=== PATIENT | male | born 1990 ===

== ENCOUNTER 2021-03-28 15:51 | Emergency (ER) | payer OTHER ==
[~2021-03-28] VITALS: Ht 172.7 cm; Wt 77.1 kg
[~2021-03-28 15:51] MED LIST: Cipro500 MG PO; Flagyl500 MG PO
[2021-03-28 16:49] LABS: BASOPHILS ABSOLUTE AUTO 0.08 K/mm3 (0.00-0.23); BASOPHILS PERCENT AUTO 1 % (0-2); EOSINOPHILS ABSOLUTE AUTO 0.18 K/mm3 (0.00-0.68); EOSINOPHILS PERCENT AUTO 3 % (0-6); Hematocrit 46.1 % (37.0-53.0); Hemoglobin 15.3 g/dL (13.5-17.5); IMMATURE GRAN ABSOLUTE AUTO 0.02 K/mm3 (0.00-0.10); IMMATURE GRAN PERCENT AUTO 0 % (0-1); LYMPHOCYTES ABSOLUTE AUTO 1.93 K/mm3 (0.84-5.20); LYMPHOCYTES PERCENT AUTO 28 % (21-46); MONOCYTES ABSOLUTE AUTO 0.63 K/mm3 (0.16-1.47); MONOCYTES PERCENT AUTO 9 % (4-13); Mean Corpuscular HGB Conc 33.2 g/dL (31.5-36.5); Mean Corpuscular Volume 88 fL (80-100); Mean Platelet Volume 10.3 fL (9.1-12.4); NEUTROPHILS ABSOLUTE AUTO 4.14 K/mm3 (1.96-9.15); NEUTROPHILS PERCENT AUTO 59 % (41-73); Platelet Count 211 K/mm3 (150-400); RDW Coefficient Variation 12.4 % (11.7-14.2); RDW Standard Deviation 40.2 fL (35.1-46.3); Red Blood Cell Count 5.27 M/mm3 (4.30-5.90); White Blood Cell Count 6.98 K/mm3 (4.00-11.30)
[2021-03-28 17:06] LABS: Alanine Aminotransfer (ALT/SGP 29 U/L (12-78); Albumin, Blood 3.9 g/dL (3.4-5.0); Albumin/Globulin Ratio 0.9 (0.8-1.8); Alk Phos 72 U/L (50-136); Anion Gap 4 mmol/L (6-16); Aspartate Aminotrans (AST/SGOT 17 U/L (12-37); Bilirubin, Total 0.4 mg/dL (0.1-1.0); Blood Urea Nitrogen 10 mg/dL (8-24); Bun/Creatinine Ratio 13.2 (12.0-20.0); CO2, Blood 30 mmol/L (21-32); Calcium, Blood 9.4 mg/dL (8.5-10.1); Chloride, Blood 106 mmol/L (98-108); Creatinine, Blood 0.76 mg/dL (0.60-1.20); Globulin, Blood 4.3 g/dL (2.2-4.0); Glomerular Filtration Rate >60 (60-); Glucose, Blood 86 mg/dL (70-99); Potassium, Blood 4.1 mmol/L (3.5-5.5); Sodium, Blood 140 mmol/L (136-145); Total Protein, Blood 8.2 g/dL (6.4-8.2)
[2021-03-28 18:03] LABS: Source, Urine Catheter
[2021-03-28 18:07] LABS: Appearance, Urine Clear (Clear); Bilirubin, Urine Neg (Neg); Blood, Urine Neg (Neg); Color, Urine Yellow (P-Yellow); Glucose Qualitative, Urine Neg (Neg); Ketones, Urine Neg (Neg); Leukocyte Esterase, Urine 1+ (Neg); Nitrite, Urine Neg (Neg); Protein, Urine Neg (Neg); Specific Gravity, Urine 1.005 (1.003-1.022); Urobilinogen, Urine NORM (Normal)
[2021-03-28 18:15] LABS: Bacteria Mod /hpf; Red Blood Cells, Urine Not Seen /hpf (0-2); Squamous Epithelial Cells Few /hpf (Few); White Blood Cells, Urine 0-2 /hpf (0-5)
[2021-03-28] MEDS ORDERED: XARELTO20 MG PO (19:23)
[2021-03-28] MEDS ORDERED: MYRBETRIQ50 MG PO (19:23)
[2021-05-22] MEDS ORDERED: PROTONIX40 M4 PO (12:52)
== END 2021-03-28 22:08 | disposition home or self-care (01) ==
LOC: ER 15:51
PROVIDERS: Physician Assistant
DX: R50.9 Fever, unspecified (principal); R51.9 Headache, unspecified; Z79.01 Long term (current) use of anticoagulants
CPT/HCPCS: 36415; 71046; 80053; 81001; 85025; 87086; 87147; 99283-25

== ENCOUNTER → 2021-05-01 | Outpatient (CLI) | payer OTHER ==
[~2021-05-01] MED LIST changes: +MYRBETRIQ50 MG PO; +PROTONIX40 M4 PO; +XARELTO20 MG PO
[2021-05-01 19:07] LABS: Appearance, Urine Clear (Clear); Bilirubin, Urine Neg (Neg); Blood, Urine Neg (Neg); Color, Urine Yellow (P-Yellow); Glucose Qualitative, Urine Neg (Neg); Ketones, Urine Neg (Neg); Leukocyte Esterase, Urine 1+ (Neg); Nitrite, Urine Neg (Neg); Protein, Urine Neg (Neg); Specific Gravity, Urine 1.005 (1.003-1.022); Urobilinogen, Urine NORM (Normal)
[2021-05-01 19:22] LABS: Bacteria Few /hpf; Red Blood Cells, Urine Not Seen /hpf (0-2); Squamous Epithelial Cells Few /hpf (Few); White Blood Cells, Urine 0-2 /hpf (0-5)
== END | disposition home or self-care (01) ==
LOC: LAB SHORT 17:00 → LAB 17:00 → LAB FUT 04-24 16:30
PROVIDERS: Physician Assistant
DX: N31.2 Flaccid neuropathic bladder, not elsewhere classified (principal); N39.41 Urge incontinence
CPT/HCPCS: 81001; 87086; 87147

== ENCOUNTER 2021-05-23 07:16 | Day surgery (SDC) | payer OTHER | END 2021-05-23 09:34 | disposition home or self-care (01) | LOC: ORSCMMR 07:16 | PROC: 0DJD8ZZ Inspection of Lower Intestinal Tract, Via Natural or Artificial Opening Endoscopic (ICD-10-PCS; principal; 2021-05-23) | DX: R10.31 Right lower quadrant pain (principal); G82.50 Quadriplegia, unspecified; Z79.01 Long term (current) use of anticoagulants; Z79.899 Other long term (current) drug therapy ==

== ENCOUNTER 2022-06-18 12:58 | Inpatient (IN) | payer OTHER ==
[~2022-06-18] VITALS: Ht 172.7 cm; Wt 89.8 kg
[2022-06-18 13:44] LABS: BASOPHILS ABSOLUTE AUTO 0.06 K/mm3 (0.00-0.23); BASOPHILS PERCENT AUTO 0 % (0-2); EOSINOPHILS ABSOLUTE AUTO 0.03 K/mm3 (0.00-0.68); EOSINOPHILS PERCENT AUTO 0 % (0-6); Hematocrit 43.1 % (37.0-53.0); Hemoglobin 14.1 g/dL (13.5-17.5); IMMATURE GRAN ABSOLUTE AUTO 0.22 K/mm3 (0.00-0.10); IMMATURE GRAN PERCENT AUTO 1 % (0-1); LYMPHOCYTES ABSOLUTE AUTO 1.69 K/mm3 (0.84-5.20); LYMPHOCYTES PERCENT AUTO 8 % (21-46); MONOCYTES ABSOLUTE AUTO 1.73 K/mm3 (0.16-1.47); MONOCYTES PERCENT AUTO 8 % (4-13); Mean Corpuscular HGB 27.8 pg (26.0-34.0); Mean Corpuscular HGB Conc 32.7 g/dL (31.5-36.5); Mean Corpuscular Volume 85 fL (80-100); Mean Platelet Volume 10.4 fL (9.1-12.4); NEUTROPHILS ABSOLUTE AUTO 17.78 K/mm3 (1.96-9.15); NEUTROPHILS PERCENT AUTO 83 % (41-73); Platelet Count 220 K/mm3 (150-400); RDW Coefficient Variation 13.3 % (11.7-14.2); RDW Standard Deviation 41.1 fL (35.1-46.3); Red Blood Cell Count 5.07 M/mm3 (4.30-5.90); White Blood Cell Count 21.51 K/mm3 (4.00-11.30)
[2022-06-18 14:12] LABS: Albumin, Blood 3.8 g/dL (3.4-5.0); Bun/Creatinine Ratio 12.5 (12.0-20.0); Calcium, Blood 9.2 mg/dL (8.5-10.1); Creatinine, Blood 0.8 mg/dL (0.60-1.20); Potassium, Blood 4.2 mmol/L (3.5-5.5); Total Protein, Blood 7.8 g/dL (6.4-8.2)
[2022-06-18 14:19] LABS: Source, Urine Clean Catch
[2022-06-18 14:32] LABS: Appearance, Urine Cloudy (Clear); Blood, Urine 4+ (Neg); Color, Urine Yellow (P-Yellow); Glucose Qualitative, Urine Neg (Neg); Ketones, Urine Neg (Neg); Leukocyte Esterase, Urine 3+ (Neg); Nitrite, Urine Pos (Neg); Protein, Urine 2+ (Neg); Specific Gravity, Urine 1.015 (1.003-1.022); Urobilinogen, Urine NORM (Normal)
[2022-06-18 16:35] LABS: Bilirubin, Urine 1+ (Neg)
[2022-06-18 16:36] LABS: White Blood Cells, Urine 50-100 /hpf (0-5)
[2022-06-18 16:37] LABS: Bacteria Many /hpf; Squamous Epithelial Cells Few /hpf (Few); Transitional Epithelial Cells Few /hpf (0-Rare)
[2022-06-18 16:39] LABS: Mucus Light (0-Heavy)
[2022-06-19 04:45] LABS: BASOPHILS ABSOLUTE AUTO 0.07 K/mm3 (0.00-0.23); BASOPHILS PERCENT AUTO 0 % (0-2); EOSINOPHILS ABSOLUTE AUTO 0.16 K/mm3 (0.00-0.68); EOSINOPHILS PERCENT AUTO 1 % (0-6); Hematocrit 38.4 % (37.0-53.0); Hemoglobin 12.7 g/dL (13.5-17.5); IMMATURE GRAN ABSOLUTE AUTO 0.06 K/mm3 (0.00-0.10); IMMATURE GRAN PERCENT AUTO 0 % (0-1); LYMPHOCYTES ABSOLUTE AUTO 2.64 K/mm3 (0.84-5.20); LYMPHOCYTES PERCENT AUTO 15 % (21-46); MONOCYTES ABSOLUTE AUTO 1.08 K/mm3 (0.16-1.47); MONOCYTES PERCENT AUTO 6 % (4-13); Mean Corpuscular HGB 28.3 pg (26.0-34.0); Mean Corpuscular HGB Conc 33.1 g/dL (31.5-36.5); Mean Corpuscular Volume 86 fL (80-100); Mean Platelet Volume 10.8 fL (9.1-12.4); NEUTROPHILS ABSOLUTE AUTO 13.27 K/mm3 (1.96-9.15); NEUTROPHILS PERCENT AUTO 77 % (41-73); Platelet Count 183 K/mm3 (150-400); RDW Coefficient Variation 13.3 % (11.7-14.2); RDW Standard Deviation 41.4 fL (35.1-46.3); Red Blood Cell Count 4.48 M/mm3 (4.30-5.90); White Blood Cell Count 17.28 K/mm3 (4.00-11.30)
[2022-06-19 05:12] LABS: Albumin, Blood 3.2 g/dL (3.4-5.0); Albumin/Globulin Ratio 0.8 (0.8-1.8); Bun/Creatinine Ratio 11.7 (12.0-20.0); Calcium, Blood 8.4 mg/dL (8.5-10.1); Creatinine, Blood 0.6 mg/dL (0.60-1.20); Globulin, Blood 3.8 g/dL (2.2-4.0); Potassium, Blood 3.5 mmol/L (3.5-5.5)
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
--- NOTE | 2022-06-19 06:47 | NUR ---
06/19/22 0640 Patient with a temp of 100.4 this am. Pt states he is continuing to have the leg spasms and that they are lasting 2minutes. Pain and "pulling feeling in bladder and bowel is better. Tylenol 650 mg given.
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
--- NOTE | 2022-06-20 04:24 | NUR ---
SHIFT SUMMARY PATIENT A&OX4, PLEASANT AND COOPERATIVE. SMITH IN PLACE, DRAINING YELLOW/CLEAR. PATIENT HAD A FEVER, TREATED WITH TYLENOL AND HAS RESOLVED. NEW ORDER FOR BACLOFEN OBTAINED TO TREAT MUSCLE SPASMS. PT HAD NO PAIN OR NAUSEA DURING SHIFT. CALL LIGHT WITHIN REACH.
[2022-06-20 05:02] LABS: BASOPHILS ABSOLUTE AUTO 0.05 K/mm3 (0.00-0.23); BASOPHILS PERCENT AUTO 1 % (0-2); EOSINOPHILS ABSOLUTE AUTO 0.06 K/mm3 (0.00-0.68); EOSINOPHILS PERCENT AUTO 1 % (0-6); Hematocrit 40.7 % (37.0-53.0); Hemoglobin 13.5 g/dL (13.5-17.5); IMMATURE GRAN ABSOLUTE AUTO 0.03 K/mm3 (0.00-0.10); IMMATURE GRAN PERCENT AUTO 0 % (0-1); LYMPHOCYTES ABSOLUTE AUTO 2.11 K/mm3 (0.84-5.20); LYMPHOCYTES PERCENT AUTO 21 % (21-46); MONOCYTES ABSOLUTE AUTO 0.92 K/mm3 (0.16-1.47); MONOCYTES PERCENT AUTO 9 % (4-13); Mean Corpuscular HGB 28.2 pg (26.0-34.0); Mean Corpuscular HGB Conc 33.2 g/dL (31.5-36.5); Mean Corpuscular Volume 85 fL (80-100); Mean Platelet Volume 10.3 fL (9.1-12.4); NEUTROPHILS ABSOLUTE AUTO 6.75 K/mm3 (1.96-9.15); NEUTROPHILS PERCENT AUTO 68 % (41-73); Platelet Count 190 K/mm3 (150-400); RDW Coefficient Variation 13.3 % (11.7-14.2); RDW Standard Deviation 41.8 fL (35.1-46.3); Red Blood Cell Count 4.78 M/mm3 (4.30-5.90); White Blood Cell Count 9.92 K/mm3 (4.00-11.30)
[2022-06-20 05:19] LABS: Bun/Creatinine Ratio 6.5 (12.0-20.0); Calcium, Blood 8.5 mg/dL (8.5-10.1); Creatinine, Blood 0.78 mg/dL (0.60-1.20); Potassium, Blood 3.4 mmol/L (3.5-5.5)
--- NOTE | 2022-06-20 17:26 | NUR ---
SHIFT SUMMARY PT A/O X4; PLEASANT AND COOPERATIVE WITH CARE. PT PERIODICALLY EXPERIENCES INTENSE MUSCLE SPASMS, TREATED PER EMR. SMITH IN PLACE AND DRAINING TO GRAVITY. IND/SBA TO WHEEL CHAIR. VSS. WILL REPORT TO PRABHAKAR WHITTAKER.
[2022-06-21 04:54] LABS: BASOPHILS ABSOLUTE AUTO 0.06 K/mm3 (0.00-0.23); BASOPHILS PERCENT AUTO 1 % (0-2); EOSINOPHILS ABSOLUTE AUTO 0.12 K/mm3 (0.00-0.68); EOSINOPHILS PERCENT AUTO 2 % (0-6); Hematocrit 41.9 % (37.0-53.0); Hemoglobin 13.8 g/dL (13.5-17.5); IMMATURE GRAN ABSOLUTE AUTO 0.02 K/mm3 (0.00-0.10); IMMATURE GRAN PERCENT AUTO 0 % (0-1); LYMPHOCYTES PERCENT AUTO 19 % (21-46); MONOCYTES ABSOLUTE AUTO 1.11 K/mm3 (0.16-1.47); MONOCYTES PERCENT AUTO 14 % (4-13); Mean Corpuscular HGB Conc 32.9 g/dL (31.5-36.5); Mean Corpuscular Volume 85 fL (80-100); NEUTROPHILS ABSOLUTE AUTO 5.18 K/mm3 (1.96-9.15); NEUTROPHILS PERCENT AUTO 65 % (41-73); Platelet Count 200 K/mm3 (150-400); RDW Coefficient Variation 13.2 % (11.7-14.2); RDW Standard Deviation 41.2 fL (35.1-46.3); Red Blood Cell Count 4.93 M/mm3 (4.30-5.90); White Blood Cell Count 7.99 K/mm3 (4.00-11.30)
[2022-06-21 05:24] LABS: Bun/Creatinine Ratio 12.9 (12.0-20.0); Calcium, Blood 8.9 mg/dL (8.5-10.1); Creatinine, Blood 0.78 mg/dL (0.60-1.20); Potassium, Blood 3.9 mmol/L (3.5-5.5)
--- NOTE | 2022-06-21 05:32 | NUR ---
SHIFT SUMMARY PT VERY PLEASANT. WITH INCOMPLETE QUADRIPLEGIA. IS ABLE TO MOVE AND USE ARMS. PT GETS FREQUENT LEG SPASMS AND HAS HAD INTERMITTENT BLADDER/ABD SPASMS. MEDICATED PER EMAR WITH SCHEDULED BACLOFEN AND ONE DOSE OF PRN VALIUM. SMITH CATHETER IN PLACE. PT STRAIGHT CATH'S DUE TO NEUROGENIC BLADDER. PT DID REPORT ONCE FEELING LIKE HIS BLADDER WAS FULL AND THAT HE FELT LIKE HE WAS LEAKING AROUND HIS SMITH. NO WETNESS NOTED. THE FEELING PASSED WITHOUT INTERVENTION. FLUSHED HIS SMITH TO ENSURE NO BLOCKAGE. OTHERWISE PT HAD AN UNEVENTFUL NIGHT. SLEPT OFF AND ON.
[2022-06-21] MEDS ORDERED: Prinivil10 MG PO (15:27)
[2022-06-21] MEDS ORDERED: CEFPODOXIME PR100 MG PO (15:27)
[2022-06-21] MEDS ORDERED: Acetaminophen325 M1 PO (15:27)
[2022-06-21] MEDS ORDERED: ALEVAZOL56.7 G1 TOP (15:28)
[2022-06-21] MEDS ORDERED: VISBIOME 112.51 EACH PO (15:28)
--- NOTE | 2022-06-21 18:09 | NUR ---
DC SUMMARY PT AxOx4. PLEASANT AND COOPERATIVE WITH CARE. PT DISCHARGING HOME TODAY. PT REPORTS INCREASED SPASMS IN BLADDER AND LEGS THIS AM. PT STATES THAT THE MEDICATIONS HE IS TAKING ARE NOT HELPING WITH THE SPASMS. SMITH CATHETER DC'D AT APPROX 1040. PT REPORTS HAVING UNEXPECTED EPISODE OF INCONTINENCE AFTER SMITH WAS TAKEN OUT. PT SEEMED QUITE DISTRESSED OVER THIS OCCURANCE. PT ALSO REPORTED NEW "CLUSTERS OF WHITE BUMPS" AROUND GLANS PENIS AND UNDER FORESKIN. NOTIFIED NEED FOR ASSESSMENT. PT DENIED PAIN THIS SHIFT. PT GIVEN DC INSTRUCTIONS INCLUDING FOLLOW UP APPOINTMENTS NEEDED, DC MEDICATION LIST AND PATIENT EDUCATION. PT GIVEN INFO TO ESTABLISH CARE WITH NEW PCP HE DOES NOT HAVE ONE CURRENT AT THIS TIME. PT VERBALIZES UNDERSTANDING. DENIES ANY FURTHER NEEDS AT THIS TIME. PT SAFELY ESCORTED OUT VIA WC WITH RN CARDIOVASC[facility] ICU AND FAMILY.
== END 2022-06-21 18:10 | disposition home or self-care (01) | DRG 871 ==
LOC: ER 12:58 → MEDS 17:30
PROVIDERS: Family Medicine; Physician Assistant; ADMIT Internal Medicine
DX: A41.9 Sepsis, unspecified organism (principal); G82.50 Quadriplegia, unspecified; N39.0 Urinary tract infection, site not specified; N12 Tubulo-interstitial nephritis, not specified as acute or chronic; I10 Essential (primary) hypertension; N31.9 Neuromuscular dysfunction of bladder, unspecified; M62.838 Other muscle spasm; B96.1 Klebsiella pneumoniae [K. pneumoniae] as the cause of diseases classified elsewhere; R21 Rash and other nonspecific skin eruption; N39.41 Urge incontinence; F12.929 Cannabis use, unspecified with intoxication, unspecified; Z79.899 Other long term (current) drug therapy; Z99.3 Dependence on wheelchair; Z86.718 Personal history of other venous thrombosis and embolism; Z79.01 Long term (current) use of anticoagulants; Z98.890 Other specified postprocedural states; Z87.81 Personal history of (healed) traumatic fracture
CPT/HCPCS: 36415; 76770; 80048; 80053; 81001; 83605; 84132; 85025; 87040; 87077; 87086; 87186; 96365; 96375; 99284-25; A9270; J0696; J2543; J3360; J7030; J7040; J7120

== ENCOUNTER → 2022-06-26 | Outpatient (CLI) | payer OTHER ==
[~2022-06-26] MED LIST changes: +ALEVAZOL56.7 G1 TOP; +Acetaminophen325 M1 PO; +CEFPODOXIME PR100 MG PO; +Prinivil10 MG PO; +VISBIOME 112.51 EACH PO
== END | disposition home or self-care (01) ==
LOC: LAB SHORT 09:18 → LAB 09:18
DX: N31.9 Neuromuscular dysfunction of bladder, unspecified (principal)
CPT/HCPCS: 87086

== ENCOUNTER → 2022-07-04 | Outpatient (CLI) | payer OTHER | END | disposition home or self-care (01) | LOC: LAB 15:19 → LAB SHORT 15:19 | DX: R32 Unspecified urinary incontinence (principal) | CPT/HCPCS: 87086 ==

== ENCOUNTER 2022-11-22 14:42 | Emergency (ER) | payer OTHER ==
[~2022-11-22] VITALS: Ht 172.7 cm; Wt 86.6 kg
[2022-11-22 15:56] LABS: Influenza A, PCR NEGATIVE (NEGATIVE); Influenza B, PCR NEGATIVE (NEGATIVE); Resp Syncytial Virus, PCR NEGATIVE (NEGATIVE); SARS-Cov-2 (COVID-19) PCR, MMC NEGATIVE (NEGATIVE)
== END 2022-11-22 17:43 | disposition home or self-care (01) ==
LOC: ER 14:42
PROVIDERS: Physician Assistant
DX: R09.81 Nasal congestion (principal); Z79.02 Long term (current) use of antithrombotics/antiplatelets; Z79.899 Other long term (current) drug therapy; Z20.822 Contact with and (suspected) exposure to COVID-19
CPT/HCPCS: 0241U; 99283

== ENCOUNTER 2024-05-24 10:43 | Emergency (ER) | payer OTHER ==
[~2024-05-24] VITALS: Ht 172.7 cm; Wt 82.5 kg
[2024-05-24 11:04] VITALS: BP 105/61
[2024-05-24 11:45] LABS: BASOPHILS ABSOLUTE AUTO 0.06 K/mm3 (0.00-0.23); BASOPHILS PERCENT AUTO 1 % (0-2); EOSINOPHILS ABSOLUTE AUTO 0.15 K/mm3 (0.00-0.68); EOSINOPHILS PERCENT AUTO 2 % (0-6); Hematocrit 43.4 % (37.0-53.0); Hemoglobin 14.1 g/dL (13.5-17.5); IMMATURE GRAN ABSOLUTE AUTO 0.02 K/mm3 (0.00-0.10); IMMATURE GRAN PERCENT AUTO 0 % (0-1); LYMPHOCYTES ABSOLUTE AUTO 2.13 K/mm3 (0.84-5.20); LYMPHOCYTES PERCENT AUTO 34 % (21-46); MONOCYTES ABSOLUTE AUTO 0.46 K/mm3 (0.16-1.47); MONOCYTES PERCENT AUTO 7 % (4-13); Mean Corpuscular HGB 27.3 pg (26.0-34.0); Mean Corpuscular HGB Conc 32.5 g/dL (31.5-36.5); Mean Corpuscular Volume 84 fL (80-100); Mean Platelet Volume 10.1 fL (9.1-12.4); NEUTROPHILS ABSOLUTE AUTO 3.48 K/mm3 (1.96-9.15); NEUTROPHILS PERCENT AUTO 55 % (41-73); Platelet Count 211 K/mm3 (150-400); RDW Coefficient Variation 14.3 % (11.7-14.2); RDW Standard Deviation 43.9 fL (35.1-46.3); Red Blood Cell Count 5.17 M/mm3 (4.30-5.90)
[2024-05-24 12:07] LABS: Albumin, Blood 3.6 g/dL (3.4-5.0); Bilirubin, Total 0.3 mg/dL (0.1-1.0); Bun/Creatinine Ratio 13.7 (12.0-20.0); Calcium, Blood 8.3 mg/dL (8.5-10.1); Creatinine, Blood 0.66 mg/dL (0.60-1.20); Globulin, Blood 3.7 g/dL (2.2-4.0); Total Protein, Blood 7.3 g/dL (6.4-8.2)
[2024-05-24 14:19] LABS: Source, Urine Straight Cath
[2024-05-24 14:29] LABS: Appearance, Urine Clear (Clear); Bilirubin, Urine Neg (Neg); Blood, Urine Neg (Neg); Color, Urine Yellow (P-Yellow); Glucose Qualitative, Urine Neg (Neg); Ketones, Urine Neg (Neg); Leukocyte Esterase, Urine Neg (Neg); Nitrite, Urine Neg (Neg); Protein, Urine Neg (Neg); Specific Gravity, Urine 1.015 (1.003-1.022); Urobilinogen, Urine NORM (Normal)
[2024-05-24] MEDS ORDERED: OXYB5 PO (14:58)
== END 2024-05-24 14:58 | disposition home or self-care (01) ==
LOC: ER 10:43
PROVIDERS: Physician Assistant
DX: N31.9 Neuromuscular dysfunction of bladder, unspecified (principal); G82.50 Quadriplegia, unspecified; Z87.891 Personal history of nicotine dependence; Z79.01 Long term (current) use of anticoagulants; Z79.899 Other long term (current) drug therapy
CPT/HCPCS: 80053; 81003; 85025; 99283

== ENCOUNTER → 2024-06-28 | Outpatient (CLI) | payer OTHER ==
[~2024-06-28] MED LIST changes: +OXYB5 PO
[2024-06-28 15:47] LABS: BASOPHILS ABSOLUTE AUTO 0.06 K/mm3 (0.00-0.23); BASOPHILS PERCENT AUTO 1 % (0-2); EOSINOPHILS ABSOLUTE AUTO 0.11 K/mm3 (0.00-0.68); EOSINOPHILS PERCENT AUTO 2 % (0-6); Hematocrit 44.5 % (37.0-53.0); Hemoglobin 14.7 g/dL (13.5-17.5); IMMATURE GRAN ABSOLUTE AUTO 0.02 K/mm3 (0.00-0.10); IMMATURE GRAN PERCENT AUTO 0 % (0-1); LYMPHOCYTES ABSOLUTE AUTO 1.99 K/mm3 (0.84-5.20); LYMPHOCYTES PERCENT AUTO 28 % (21-46); MONOCYTES ABSOLUTE AUTO 0.59 K/mm3 (0.16-1.47); MONOCYTES PERCENT AUTO 8 % (4-13); Mean Corpuscular HGB 27.7 pg (26.0-34.0); Mean Corpuscular Volume 84 fL (80-100); Mean Platelet Volume 10.9 fL (9.1-12.4); NEUTROPHILS ABSOLUTE AUTO 4.25 K/mm3 (1.96-9.15); NEUTROPHILS PERCENT AUTO 61 % (41-73); Platelet Count 215 K/mm3 (150-400); RDW Coefficient Variation 14.4 % (11.7-14.2); RDW Standard Deviation 43.8 fL (35.1-46.3); White Blood Cell Count 7.02 K/mm3 (4.00-11.30)
[2024-06-28 15:57] LABS: Alanine Aminotransfer (ALT/SGP 38 U/L (12-78); Albumin, Blood 3.8 g/dL (3.4-5.0); Alk Phos 63 U/L (50-136); Anion Gap 6 mmol/L (3-11); Aspartate Aminotrans (AST/SGOT 20 U/L (12-37); Bilirubin, Total 0.5 mg/dL (0.1-1.0); Blood Urea Nitrogen 11 mg/dL (8-24); CHOL/HDL RATIO 5.6; CO2, Blood 25 mmol/L (21-32); Calcium, Blood 9.2 mg/dL (8.5-10.1); Chloride, Blood 110 mmol/L (98-108); Cholesterol 224 mg/dL (50-200); Creatinine, Blood 0.65 mg/dL (0.60-1.20); Glomerular Filtration Rate 125 (60-); Glucose, Blood 106 mg/dL (70-99); HDL Cholesterol 40 mg/dL (>39); LDL/HDL RATIO 4.1; Low Density Lipoprotein Chol 164 mg/dL (0-110); Potassium, Blood 4.2 mmol/L (3.5-5.5); Sodium, Blood 137 mmol/L (136-145); Total Protein, Blood 7.8 g/dL (6.4-8.2); Triglycerides 101 mg/dL (30-140); Very Low Density Lipoprot Chol 20 mg/dL (6-28)
== END ==
LOC: LAB 14:55 → LAB SHORT 14:55
PROVIDERS: Family Medicine
DX: Z51.81 Encounter for therapeutic drug level monitoring (principal); Z79.899 Other long term (current) drug therapy
CPT/HCPCS: 80053; 80061; 85025

== ENCOUNTER 2024-11-22 14:20 | Emergency (ER) | payer OTHER ==
[~2024-11-22] VITALS: Ht 172.7 cm; Wt 68.0 kg
[2024-11-22] MEDS ORDERED: LINE600 PO (15:21)
[2024-11-22 15:43] LABS: BASOPHILS ABSOLUTE AUTO 0.06 K/mm3 (0.00-0.23); BASOPHILS PERCENT AUTO 1 % (0-2); EOSINOPHILS PERCENT AUTO 2 % (0-6); Hematocrit 26.8 % (37.0-53.0); Hemoglobin 9.1 g/dL (13.5-17.5); IMMATURE GRAN ABSOLUTE AUTO 0.01 K/mm3 (0.00-0.10); IMMATURE GRAN PERCENT AUTO 0 % (0-1); LYMPHOCYTES ABSOLUTE AUTO 1.25 K/mm3 (0.84-5.20); LYMPHOCYTES PERCENT AUTO 27 % (21-46); MONOCYTES ABSOLUTE AUTO 0.37 K/mm3 (0.16-1.47); MONOCYTES PERCENT AUTO 8 % (4-13); Mean Corpuscular HGB 27.4 pg (26.0-34.0); Mean Corpuscular Volume 81 fL (80-100); Mean Platelet Volume 10.5 fL (9.1-12.4); NEUTROPHILS ABSOLUTE AUTO 2.87 K/mm3 (1.96-9.15); NEUTROPHILS PERCENT AUTO 62 % (41-73); Platelet Count 141 K/mm3 (150-400); RDW Coefficient Variation 13.2 % (11.7-14.2); RDW Standard Deviation 38.4 fL (35.1-46.3); Red Blood Cell Count 3.32 M/mm3 (4.30-5.90); White Blood Cell Count 4.66 K/mm3 (4.00-11.30)
[2024-11-22] MEDS ORDERED: NS 1,000 ML IV SCH (15:50)
[2024-11-22 16:07] LABS: Albumin, Blood 3.5 g/dL (3.4-5.0); Albumin/Globulin Ratio 0.8 (0.8-1.8); Bilirubin, Total 0.3 mg/dL (0.1-1.0); Bun/Creatinine Ratio 15.1 (12.0-20.0); Calcium, Blood 9.1 mg/dL (8.5-10.1); Creatinine, Blood 1.46 mg/dL (0.60-1.20); Globulin, Blood 4.2 g/dL (2.2-4.0); Magnesium, Blood 1.7 mg/dL (1.6-2.4); Potassium, Blood 3.6 mmol/L (3.5-5.5); Total Protein, Blood 7.7 g/dL (6.4-8.2)
[2024-11-22 16:30] LABS: Source, Urine Clean Catch
[2024-11-22 16:33] LABS: Appearance, Urine Cloudy (Clear); Bilirubin, Urine Neg (Neg); Blood, Urine 3+ (Neg); Glucose Qualitative, Urine Neg (Neg); Ketones, Urine Neg (Neg); Leukocyte Esterase, Urine 3+ (Neg); Nitrite, Urine Neg (Neg); Protein, Urine 2+ (Neg); Urobilinogen, Urine NORM (Normal)
[2024-11-22 16:42] LABS: Color, Urine Pale Yellow (P-Yellow)
[2024-11-22 16:43] LABS: Bacteria Many /hpf; Squamous Epithelial Cells Not Seen /hpf (Few); White Blood Cells, Urine TNTC /hpf (0-5)
[2024-11-22 16:44] LABS: Transitional Epithelial Cells Rare /hpf (0-Rare)
[2024-11-22] MEDS ORDERED: CefTRIAXone Sodium 1,000 MG in NS 50 ML IV ONE (16:55)
[2024-11-22] MEDS ORDERED: CEPH500 PO (17:09)
[2024-11-22 18:00] VITALS: BP 127/50
== END 2024-11-22 18:17 | disposition home or self-care (01) ==
LOC: ER 14:20
PROVIDERS: Physician Assistant
DX: N39.0 Urinary tract infection, site not specified (principal); Z87.891 Personal history of nicotine dependence; Z79.899 Other long term (current) drug therapy
CPT/HCPCS: 80053; 81001; 83605; 83735; 85025; 87077; 87086; 87186; 96361; 96365; 99284-25; J0696; J7030

== ENCOUNTER 2024-12-02 05:32 | Day surgery (SDC) | payer OTHER ==
[~2024-12-02 05:32] MED LIST changes: +CEPH500 PO; +LINE600 PO
[2024-12-02] MEDS ORDERED: Lidocaine HCl 4% Cream 5 GM ONE (12:42)
== END 2024-12-02 23:00 | disposition home or self-care (01) ==
LOC: WOUND 05:32
DX: L89.313 Pressure ulcer of right buttock, stage 3 (principal); L02.31 Cutaneous abscess of buttock; N39.46 Mixed incontinence; M51.360 Other intervertebral disc degeneration, lumbar region with discogenic back pain only; L25.9 Unspecified contact dermatitis, unspecified cause
CPT/HCPCS: A6213; A9270; G0463

== ENCOUNTER 2024-12-09 02:15 | Day surgery (SDC) | payer OTHER ==
[2024-12-09] MEDS ORDERED: Lidocaine HCl 4% Cream 5 GM ONE (10:17)
== END 2024-12-09 23:00 | disposition home or self-care (01) ==
LOC: WOUND 02:15
DX: L89.313 Pressure ulcer of right buttock, stage 3 (principal); L02.31 Cutaneous abscess of buttock; N39.46 Mixed incontinence; M51.360 Other intervertebral disc degeneration, lumbar region with discogenic back pain only; L25.9 Unspecified contact dermatitis, unspecified cause
CPT/HCPCS: A6213; A9270

== ENCOUNTER 2024-12-15 02:16 | Day surgery (SDC) | payer OTHER | END 2024-12-15 23:00 | disposition home or self-care (01) | LOC: WOUND 02:16 | DX: L89.313 Pressure ulcer of right buttock, stage 3 (principal); L02.31 Cutaneous abscess of buttock; N39.46 Mixed incontinence; M51.360 Other intervertebral disc degeneration, lumbar region with discogenic back pain only; L25.9 Unspecified contact dermatitis, unspecified cause | CPT/HCPCS: A6213; G0463 ==

== ENCOUNTER 2024-12-28 00:50 | Day surgery (SDC) | payer OTHER ==
[2024-12-28] MEDS ORDERED: Lidocaine HCl 4% Cream 5 GM ONE (14:43)
== END 2024-12-28 23:00 | disposition home or self-care (01) ==
LOC: WOUND 00:50
DX: L89.313 Pressure ulcer of right buttock, stage 3 (principal); L02.31 Cutaneous abscess of buttock; N39.46 Mixed incontinence; M51.360 Other intervertebral disc degeneration, lumbar region with discogenic back pain only; L25.9 Unspecified contact dermatitis, unspecified cause
CPT/HCPCS: A6213; A9270; G0463

== ENCOUNTER 2025-01-05 00:52 | Day surgery (SDC) | payer OTHER | END 2025-01-05 23:00 | disposition home or self-care (01) | LOC: WOUND 00:52 | DX: L89.313 Pressure ulcer of right buttock, stage 3 (principal); M51.360 Other intervertebral disc degeneration, lumbar region with discogenic back pain only; N39.46 Mixed incontinence | CPT/HCPCS: A6213; G0463 ==

== ENCOUNTER 2025-01-12 02:39 | Day surgery (SDC) | payer OTHER | END 2025-01-12 23:00 | disposition home or self-care (01) | LOC: WOUND 02:39 | DX: L89.313 Pressure ulcer of right buttock, stage 3 (principal); G82.20 Paraplegia, unspecified; N39.46 Mixed incontinence; M51.360 Other intervertebral disc degeneration, lumbar region with discogenic back pain only | CPT/HCPCS: A6213; G0463 ==

== ENCOUNTER 2025-01-19 01:28 | Day surgery (SDC) | payer OTHER | END 2025-01-19 23:00 | disposition home or self-care (01) | LOC: WOUND 01:28 | DX: L89.313 Pressure ulcer of right buttock, stage 3 (principal); G82.20 Paraplegia, unspecified; N39.46 Mixed incontinence; M51.360 Other intervertebral disc degeneration, lumbar region with discogenic back pain only | CPT/HCPCS: A6196; A6213; G0463 ==

== ENCOUNTER → 2025-01-24 | Outpatient (CLI) | payer OTHER ==
[2025-01-24 18:21] LABS: Appearance, Urine Clear (Clear); Bilirubin, Urine Neg (Neg); Blood, Urine Neg (Neg); Color, Urine Yellow (P-Yellow); Glucose Qualitative, Urine Neg (Neg); Ketones, Urine Neg (Neg); Leukocyte Esterase, Urine 1+ (Neg); Nitrite, Urine Neg (Neg); Protein, Urine Neg (Neg); Specific Gravity, Urine 1.015 (1.003-1.022); Urobilinogen, Urine NORM (Normal)
[2025-01-24 18:56] LABS: Bacteria Few /hpf; Red Blood Cells, Urine 0-2 /hpf (0-2); Squamous Epithelial Cells Few /hpf (Few)
== END ==
LOC: LAB 12:10 → LAB SHORT 12:10
PROVIDERS: Family Medicine
DX: G82.20 Paraplegia, unspecified (principal); N39.46 Mixed incontinence
CPT/HCPCS: 81001

== ENCOUNTER 2025-01-26 04:25 | Day surgery (SDC) | payer OTHER | END 2025-01-26 23:00 | disposition home or self-care (01) | LOC: WOUND 04:25 | DX: L89.313 Pressure ulcer of right buttock, stage 3 (principal); L02.31 Cutaneous abscess of buttock; N39.46 Mixed incontinence; M51.360 Other intervertebral disc degeneration, lumbar region with discogenic back pain only; L25.9 Unspecified contact dermatitis, unspecified cause | CPT/HCPCS: A6196; A6213; G0463 ==

== ENCOUNTER 2025-02-02 01:38 | Day surgery (SDC) | payer OTHER | END 2025-02-02 23:00 | disposition home or self-care (01) | LOC: WOUND 01:38 | DX: L89.313 Pressure ulcer of right buttock, stage 3 (principal); L02.31 Cutaneous abscess of buttock; N39.46 Mixed incontinence; M51.360 Other intervertebral disc degeneration, lumbar region with discogenic back pain only; L25.9 Unspecified contact dermatitis, unspecified cause | CPT/HCPCS: A6196; A6213; G0463 ==

== ENCOUNTER 2025-02-09 02:58 | Day surgery (SDC) | payer OTHER | END 2025-02-09 23:00 | disposition home or self-care (01) | LOC: WOUND 02:58 | DX: L89.313 Pressure ulcer of right buttock, stage 3 (principal); N39.46 Mixed incontinence; M51.360 Other intervertebral disc degeneration, lumbar region with discogenic back pain only | CPT/HCPCS: A6196; A6213; G0463 ==

== ENCOUNTER 2025-02-16 02:13 | Day surgery (SDC) | payer OTHER ==
[2025-02-16] MEDS ORDERED: Lidocaine HCl 4% Cream 5 GM ONE (09:16)
== END 2025-02-16 23:00 | disposition home or self-care (01) ==
LOC: WOUND 02:13
DX: L89.313 Pressure ulcer of right buttock, stage 3 (principal); L02.31 Cutaneous abscess of buttock; N39.46 Mixed incontinence; M51.360 Other intervertebral disc degeneration, lumbar region with discogenic back pain only; L25.9 Unspecified contact dermatitis, unspecified cause
CPT/HCPCS: A6196; A6213; A9270; G0463

== ENCOUNTER 2025-02-23 01:10 | Day surgery (SDC) | payer OTHER ==
[2025-02-23] MEDS ORDERED: Lidocaine HCl 4% Cream 5 GM ONE (09:13)
== END 2025-02-23 23:00 ==
LOC: WOUND 01:10
DX: L89.313 Pressure ulcer of right buttock, stage 3 (principal); L02.31 Cutaneous abscess of buttock; N39.46 Mixed incontinence; M51.360 Other intervertebral disc degeneration, lumbar region with discogenic back pain only; L25.9 Unspecified contact dermatitis, unspecified cause
CPT/HCPCS: A6196; A6213; A9270; G0463

== ENCOUNTER 2025-03-02 04:38 | Day surgery (SDC) | payer OTHER ==
[2025-03-02] MEDS ORDERED: Lidocaine HCl 4% Cream 5 GM ONE (09:32)
== END 2025-03-02 23:00 | disposition home or self-care (01) ==
LOC: WOUND 04:38
DX: L89.313 Pressure ulcer of right buttock, stage 3 (principal); L02.31 Cutaneous abscess of buttock; N39.46 Mixed incontinence; M51.360 Other intervertebral disc degeneration, lumbar region with discogenic back pain only; L25.9 Unspecified contact dermatitis, unspecified cause
CPT/HCPCS: A6213; A9270; G0463

== ENCOUNTER 2025-03-22 01:21 | Day surgery (SDC) | payer OTHER | END 2025-03-22 23:00 | LOC: WOUND 01:21 | DX: L89.313 Pressure ulcer of right buttock, stage 3 (principal); L02.31 Cutaneous abscess of buttock; N39.46 Mixed incontinence; M51.360 Other intervertebral disc degeneration, lumbar region with discogenic back pain only; L25.9 Unspecified contact dermatitis, unspecified cause | CPT/HCPCS: A6213; G0463 ==

== ENCOUNTER 2025-04-13 03:12 | Day surgery (SDC) | payer OTHER | END 2025-04-13 23:00 | disposition home or self-care (01) | LOC: WOUND 03:12 | DX: L89.313 Pressure ulcer of right buttock, stage 3 (principal); L02.31 Cutaneous abscess of buttock; N39.46 Mixed incontinence; M51.360 Other intervertebral disc degeneration, lumbar region with discogenic back pain only; L25.9 Unspecified contact dermatitis, unspecified cause; G82.20 Paraplegia, unspecified | CPT/HCPCS: A6196; A6213; G0463 ==

== ENCOUNTER 2025-05-04 02:51 | Day surgery (SDC) | payer OTHER ==
[2025-05-04] MEDS ORDERED: Lidocaine HCl 4% Cream 5 GM ONE (09:19)
== END 2025-05-04 23:00 | disposition home or self-care (01) ==
LOC: WOUND 02:51
DX: L89.313 Pressure ulcer of right buttock, stage 3 (principal); L02.31 Cutaneous abscess of buttock; N39.46 Mixed incontinence; M51.360 Other intervertebral disc degeneration, lumbar region with discogenic back pain only; L25.9 Unspecified contact dermatitis, unspecified cause
CPT/HCPCS: A6196; A6213; A9270; G0463

== ENCOUNTER 2025-05-11 01:47 | Day surgery (SDC) | payer OTHER | END 2025-05-11 23:00 | disposition home or self-care (01) | LOC: WOUND 01:47 | DX: L89.313 Pressure ulcer of right buttock, stage 3 (principal); L02.31 Cutaneous abscess of buttock; M51.360 Other intervertebral disc degeneration, lumbar region with discogenic back pain only; L25.9 Unspecified contact dermatitis, unspecified cause; N31.2 Flaccid neuropathic bladder, not elsewhere classified; N39.0 Urinary tract infection, site not specified; N39.41 Urge incontinence | CPT/HCPCS: 36415; 80048; A6196; A6213; G0463 ==

== ENCOUNTER 2025-05-18 03:28 | Day surgery (SDC) | payer OTHER | END 2025-05-18 23:00 | disposition home or self-care (01) | LOC: WOUND 03:28 | DX: L89.313 Pressure ulcer of right buttock, stage 3 (principal); L02.31 Cutaneous abscess of buttock; N39.46 Mixed incontinence; M51.360 Other intervertebral disc degeneration, lumbar region with discogenic back pain only; L25.9 Unspecified contact dermatitis, unspecified cause | CPT/HCPCS: A6196; A6213; G0463 ==

== ENCOUNTER → 2025-05-20 | Outpatient (CLI) | payer OTHER | LOC: LAB 17:17 → LAB SHORT 17:17 | DX: N39.0 Urinary tract infection, site not specified (principal) | CPT/HCPCS: 87086 ==

== ENCOUNTER 2025-05-25 03:17 | Day surgery (SDC) | payer OTHER | END 2025-05-25 23:00 | disposition home or self-care (01) | LOC: WOUND 03:17 | DX: L89.313 Pressure ulcer of right buttock, stage 3 (principal); L02.31 Cutaneous abscess of buttock; N39.46 Mixed incontinence; M51.360 Other intervertebral disc degeneration, lumbar region with discogenic back pain only; L25.9 Unspecified contact dermatitis, unspecified cause | CPT/HCPCS: A6196; A6213; G0463 ==

== ENCOUNTER 2025-06-01 03:28 | Day surgery (SDC) | payer OTHER ==
[2025-06-01] MEDS ORDERED: Lidocaine HCl 4% Cream 5 GM ONE (09:13)
== END 2025-06-01 23:00 | disposition home or self-care (01) ==
LOC: WOUND 03:28
DX: L89.313 Pressure ulcer of right buttock, stage 3 (principal); L02.31 Cutaneous abscess of buttock; N39.46 Mixed incontinence; M51.360 Other intervertebral disc degeneration, lumbar region with discogenic back pain only; L25.9 Unspecified contact dermatitis, unspecified cause
CPT/HCPCS: A6196; A6213; A9270; G0463

== ENCOUNTER → 2025-06-08 | Day surgery (SDC) | payer OTHER | END | disposition home or self-care (01) | LOC: WOUND | DX: L89.313 Pressure ulcer of right buttock, stage 3 (principal); L02.31 Cutaneous abscess of buttock; N39.46 Mixed incontinence; M51.360 Other intervertebral disc degeneration, lumbar region with discogenic back pain only; L25.9 Unspecified contact dermatitis, unspecified cause | CPT/HCPCS: A6213; G0463 ==

== ENCOUNTER 2025-06-29 04:15 | Day surgery (SDC) | payer OTHER | END 2025-06-29 23:00 | disposition home or self-care (01) | LOC: WOUND 04:15 | DX: L89.313 Pressure ulcer of right buttock, stage 3 (principal); L02.31 Cutaneous abscess of buttock; N39.46 Mixed incontinence; M51.360 Other intervertebral disc degeneration, lumbar region with discogenic back pain only; L25.9 Unspecified contact dermatitis, unspecified cause | CPT/HCPCS: A6213; G0463 ==

== ENCOUNTER 2025-07-06 02:31 | Day surgery (SDC) | payer OTHER ==
[2025-07-06] MEDS ORDERED: Lidocaine HCl 4% Cream 5 GM ONE (09:07)
== END 2025-07-06 23:00 | disposition home or self-care (01) ==
LOC: WOUND 02:31
DX: L89.313 Pressure ulcer of right buttock, stage 3 (principal); L02.31 Cutaneous abscess of buttock; N39.46 Mixed incontinence; M51.360 Other intervertebral disc degeneration, lumbar region with discogenic back pain only; L25.9 Unspecified contact dermatitis, unspecified cause
CPT/HCPCS: A6213; A9270; G0463

== ENCOUNTER 2025-07-13 08:00 | Day surgery (SDC) | payer OTHER | END 2025-07-13 23:00 | disposition home or self-care (01) | LOC: WOUND 08:00 | DX: L89.313 Pressure ulcer of right buttock, stage 3 (principal); G82.20 Paraplegia, unspecified; N39.46 Mixed incontinence; M51.360 Other intervertebral disc degeneration, lumbar region with discogenic back pain only | CPT/HCPCS: A6196; A6213; G0463 ==

== ENCOUNTER 2025-07-20 02:16 | Day surgery (SDC) | payer OTHER ==
[2025-07-20] MEDS ORDERED: Lidocaine HCl 4% Cream 5 GM ONE (08:55)
== END 2025-07-20 23:00 | disposition home or self-care (01) ==
LOC: WOUND 02:16
DX: L89.313 Pressure ulcer of right buttock, stage 3 (principal); L02.31 Cutaneous abscess of buttock; N39.46 Mixed incontinence; M51.360 Other intervertebral disc degeneration, lumbar region with discogenic back pain only; L25.9 Unspecified contact dermatitis, unspecified cause; G82.20 Paraplegia, unspecified
CPT/HCPCS: A6213; A9270; G0463

== ENCOUNTER 2025-08-09 00:44 | Day surgery (SDC) | payer OTHER | END 2025-08-09 23:00 | disposition home or self-care (01) | LOC: WOUND 00:44 | DX: L89.313 Pressure ulcer of right buttock, stage 3 (principal); L02.31 Cutaneous abscess of buttock; N39.46 Mixed incontinence; M51.360 Other intervertebral disc degeneration, lumbar region with discogenic back pain only | CPT/HCPCS: A6213; G0463 ==

== ENCOUNTER 2025-08-17 00:21 | Day surgery (SDC) | payer OTHER | END 2025-08-17 23:00 | disposition home or self-care (01) | LOC: WOUND 00:21 | DX: L89.313 Pressure ulcer of right buttock, stage 3 (principal); L02.31 Cutaneous abscess of buttock | CPT/HCPCS: A6213; G0463 ==

== ENCOUNTER 2025-08-24 03:01 | Day surgery (SDC) | payer OTHER | END 2025-08-24 23:00 | disposition home or self-care (01) | LOC: WOUND 03:01 | DX: L89.313 Pressure ulcer of right buttock, stage 3 (principal); G82.20 Paraplegia, unspecified; N39.46 Mixed incontinence; M51.360 Other intervertebral disc degeneration, lumbar region with discogenic back pain only | CPT/HCPCS: A6213; G0463 ==

== ENCOUNTER 2025-08-31 00:37 | Day surgery (SDC) | payer OTHER | END 2025-08-31 23:00 | disposition home or self-care (01) | LOC: WOUND 00:37 | DX: L89.313 Pressure ulcer of right buttock, stage 3 (principal); G82.20 Paraplegia, unspecified; N39.46 Mixed incontinence; M51.360 Other intervertebral disc degeneration, lumbar region with discogenic back pain only | CPT/HCPCS: A6196; A6213; G0463 ==

== ENCOUNTER 2025-09-07 01:44 | Day surgery (SDC) | payer OTHER | END 2025-09-07 23:00 | disposition home or self-care (01) | LOC: WOUND 01:44 | DX: L89.313 Pressure ulcer of right buttock, stage 3 (principal); L02.31 Cutaneous abscess of buttock; N39.46 Mixed incontinence; M51.360 Other intervertebral disc degeneration, lumbar region with discogenic back pain only; L25.9 Unspecified contact dermatitis, unspecified cause | CPT/HCPCS: A6196; A6213; G0463 ==

== ENCOUNTER 2025-09-14 00:12 | Day surgery (SDC) | payer OTHER ==
[2025-09-14] MEDS ORDERED: Lidocaine HCl 4% Cream 5 GM ONE (09:21)
== END 2025-09-14 23:00 | disposition home or self-care (01) ==
LOC: WOUND 00:12
DX: L89.313 Pressure ulcer of right buttock, stage 3 (principal); G82.20 Paraplegia, unspecified; N39.46 Mixed incontinence; M51.360 Other intervertebral disc degeneration, lumbar region with discogenic back pain only
CPT/HCPCS: A6196; A6213; A9270; G0463

== ENCOUNTER 2025-09-28 01:04 | Day surgery (SDC) | payer OTHER | END 2025-09-28 23:00 | disposition home or self-care (01) | LOC: WOUND 01:04 | DX: L89.313 Pressure ulcer of right buttock, stage 3 (principal); L02.31 Cutaneous abscess of buttock; N39.46 Mixed incontinence; M51.360 Other intervertebral disc degeneration, lumbar region with discogenic back pain only; L25.9 Unspecified contact dermatitis, unspecified cause | CPT/HCPCS: A6196; A6213; G0463 ==

== ENCOUNTER 2025-10-05 00:15 | Day surgery (SDC) | payer OTHER ==
[2025-10-05] MEDS ORDERED: Lidocaine HCl 4% Cream 5 GM ONE (09:20)
== END 2025-10-05 23:20 | disposition home or self-care (01) ==
LOC: WOUND 00:15
DX: L89.313 Pressure ulcer of right buttock, stage 3 (principal); L02.31 Cutaneous abscess of buttock; N39.46 Mixed incontinence; M51.360 Other intervertebral disc degeneration, lumbar region with discogenic back pain only; L25.9 Unspecified contact dermatitis, unspecified cause; Z79.899 Other long term (current) drug therapy
CPT/HCPCS: A6196; A6213; A9270; G0463

== ENCOUNTER 2025-10-19 00:59 | Day surgery (SDC) | payer OTHER | END 2025-10-19 23:48 | disposition home or self-care (01) | LOC: WOUND 00:59 | DX: L89.313 Pressure ulcer of right buttock, stage 3 (principal); L02.31 Cutaneous abscess of buttock; N39.46 Mixed incontinence; M51.360 Other intervertebral disc degeneration, lumbar region with discogenic back pain only; L25.9 Unspecified contact dermatitis, unspecified cause | CPT/HCPCS: A6196; A6213; G0463 ==

== ENCOUNTER 2025-11-02 07:41 | Day surgery (SDC) | payer OTHER | END 2025-11-02 23:00 | disposition home or self-care (01) | LOC: WOUND 07:41 | DX: L89.313 Pressure ulcer of right buttock, stage 3 (principal); L02.31 Cutaneous abscess of buttock; N39.46 Mixed incontinence; M51.360 Other intervertebral disc degeneration, lumbar region with discogenic back pain only; L25.9 Unspecified contact dermatitis, unspecified cause; I95.9 Hypotension, unspecified; G82.50 Quadriplegia, unspecified; Z79.01 Long term (current) use of anticoagulants; Z79.899 Other long term (current) drug therapy | CPT/HCPCS: A6196; A6213; G0463 ==